=== PATIENT | male | born 1955 | race Caucasian/White ===

== ENCOUNTER 2021-08-10 20:38 | Emergency (ER) | payer OTHER ==
[2021-08-10] MEDS ORDERED: Lidocaine 1% (PF) 30 ML VIAL ONE ×2 (21:15→21:16)
[2021-08-10] MEDS ORDERED: Bupivacaine 0.25% 10 ML VIAL ONE (21:17)
[2021-08-10] MEDS ORDERED: Bacitracin 1 PK ONE (22:13)
[2021-08-10] MEDS ORDERED: Sulfameth/Trimethoprim DS 800-160mg TAB ONE (22:44)
[2021-08-10] MEDS ORDERED: Cephalexin 250 MG CAP ONE (22:44)
== END 2021-08-10 22:55 | disposition home or self-care (01) ==
LOC: ERS 20:38
DX: S68.022A Partial traumatic metacarpophalangeal amputation of left thumb, initial encounter (principal); W31.2XXA Contact with powered woodworking and forming machines, initial encounter
CPT/HCPCS: 12042; J2001; S0020